=== PATIENT | female | born 1965 ===

== ENCOUNTER 2017-01-11 09:49 | Emergency (ER) | payer BC ==
[2017-01-11 09:53] VITALS: TEMP 98
[2017-01-11 09:54] VITALS: BMI 38.1
[2017-01-11 10:21] VITALS: RESP 18
[2017-01-11] MEDS ORDERED: Nystatin Ointment TOP STA (11:04)
--- NOTE | 2017-01-11 11:08 | ED PDOC ---
HPI: Skin/Bite Injury Time Seen by Provider: 01/11/17 10:47 Chief Complaint (Nursing): Abnormal Skin Integrity Chief Complaint (Provider): Rash History Per: Patient History/Exam Limitations: no limitations Onset/Duration Of Symptoms: Days (x 3 weeks) Current Symptoms Are (Timing): Still Present Additional Complaint(s): Nancy is a 52-year-old female with a past medical history of diabetes and hypertension, who presents to the ED complaining of a rash to the bilateral breast folds, ongoing for 3 weeks. Patient originally self-medicated by applying Desitin cream, bought over the counter at [employer]. Sunday she saw PMD who prescribed Econazole cream, which she has been using for 2 days. Rash is associated with burning, warmth, and pain, but no itchiness. Patient denies fever, chest pain, shortness of breath, new allergies, or rash to other areas. Cannot recall any new detergents or soaps, new bra, or anything that may have caused rash. PMD: Tae Fong MD Past Medical History Reviewed: Historical Data, Nursing Documentation, Vital Signs Vital Signs: Last Vital Signs Temp 98 F 01/11/17 09:52 Pulse 118 H 01/11/17 09:52 Resp 18 01/11/17 10:18 BP 150/92 H 01/11/17 09:52 Pulse Ox 98 01/11/17 11:30 - Medical History PMH: Asthma, Diabetes, HTN Denies: Chronic Kidney Disease - Surgical History Surgical History: Appendectomy, - Family History Family History: States: Unknown Family Hx - Social History Current smoker - smoking cessation education provided: No Alcohol: None Drugs: Denies - Home Medications Home Medications: Ambulatory Orders Medication Instructions Recorded Clopidogrel [Plavix] 75 mg PO DAILY #0 tab 03/18/16 GlipiZIDE [Glucotrol] 10 mg PO ACB #0 tab 03/18/16 Losartan [Cozaar] 25 mg PO DAILY #0 tab 03/18/16 MetFORMIN [glucOPHAGE] 500 mg PO QAM #15 tab 03/18/16 Amoxicillin/Clavulanate [Augmentin 1 tab PO BID 08/06/16 875 MG-125 MG Tab] Clindamycin [Cleocin] 300 mg PO QID 7 Days 08/06/16 Methylprednisolone [Medrol Dose 4 mg PO DAILY #21 mg 08/06/16 Pack (21 tabs)] oxyCODONE/Acetaminophen [Percocet 1 ea PO Q6 PRN #5 tab 08/06/16 5/325 mg Tab] Fluconazole 400 mg PO DAILY 7 Days 01/11/17 - Allergies Allergies/Adverse Reactions: Allergies Allergy/AdvReac Type Severity Reaction Status Date / Time tetracycline Allergy Mild RASH Verified 01/11/17 10:18 Review of Systems Constitutional: Negative for: Fever, Weakness ENT: Negative for: Nose Congestion, Throat Pain Cardiovascular: Negative for: Chest Pain, Edema, Light Headedness Respiratory: Negative for: Shortness of Breath Gastrointestinal: Negative for: Nausea, Vomiting Skin: Positive for: Rash (to bilateral breast folds, associated with burning and pain) Neurological: Negative for: Weakness Physical Exam - Reviewed Nursing Documentation Reviewed: Yes Vital Signs Reviewed: Yes - Physical Exam Appears: Positive for: Non-toxic, No Acute Distress Head Exam: Positive for: ATRAUMATIC, NORMAL INSPECTION, NORMOCEPHALIC Skin: Positive for: Warm, Dry, Rash (Erythematous to bilateral breast folds. No purulent discharge, vesicles, or induration; nontender; fluctuance; trace blanching.) Eye Exam: Positive for: EOMI, Normal appearance, PERRL ENT: Positive for: Normal ENT Inspection Neck: Positive for: Normal, Painless ROM, Supple Cardiovascular/Chest: Positive for: Regular Rate, Rhythm. Negative for: Murmur Respiratory: Positive for: Normal Breath Sounds. Negative for: Accessory Muscle Use, Respiratory Distress Gastrointestinal/Abdominal: Positive for: Normal Exam, Soft. Negative for: Tenderness Back: Positive for: Normal Inspection. Negative for: L CVA Tenderness, R CVA Tenderness, Vertebral Tenderness Extremity: Positive for: Normal ROM. Negative for: Tenderness, Pedal Edema, Deformity Neurologic/Psych: Positive for: Alert, Oriented - ECG O2 Sat by Pulse Oximetry: 98 (RA) Pulse Ox Interpretation: Normal - Progress ED Course And Treament: 1212: Stable. AAOx3. Will stop cream and give oral fungal meds. Pt. understands plan. Pain improved. Medical Decision Making Medical Decision Making: Time: 11:00 Initial Impression: Rash Initial Plan: --Motrin 600 mg PO --Applied Nystatin cream topically to affected region --Accucheck --Fluconazole 400 mg PO --Reevaluation Scribe Attestation: Documented by Sandra Cooley, acting as a scribe for Kaushik Terry MD Provider Scribe Attestation: All medical record entries made by the Scribe were at my direction and personally dictated by me. I have reviewed the chart and agree that the record accurately reflects my personal performance of the history, physical exam, medical decision making, and the department course for this patient. I have also personally directed, reviewed, and agree with the discharge instructions and disposition. Disposition - Clinical Impression Clinical Impression: Skin candidiasis - Patient ED Disposition Is Patient to be Admitted: No Counseled Patient/Family Regarding: Diagnosis, Need For Followup, Rx Given - Disposition Referrals: Tae Fong MD [Staff Provider] - 01/12/17 Disposition: Routine/Home Disposition Time: 12:15 Condition: STABLE Additional Instructions: Return if not better in 3 days. Stop your cream and start the oral medications. Prescriptions: Fluconazole 400 mg PO DAILY 7 Days Instructions: Skin Yeast Infection (ED) Forms: [employer] (Hungarian)
[2017-01-11 12:32] VITALS: BP 148/90; PULSE 100; O2SAT 99
== END 2017-01-11 12:28 | disposition home or self-care (01) ==
LOC: H.ER 09:49
DX: B37.89 Other sites of candidiasis (principal); E11.9 Type 2 diabetes mellitus without complications; I10 Essential (primary) hypertension; Z79.84 Long term (current) use of oral hypoglycemic drugs; J45.909 Unspecified asthma, uncomplicated

== ENCOUNTER 2017-06-16 10:32 | Emergency (ER) | payer BC ==
[2017-06-16 10:38] VITALS: BMI 37.0
[2017-06-16 10:39] VITALS: BP 149/80; PULSE 118; RESP 17; TEMP 98.8; O2SAT 96
--- NOTE | 2017-06-16 11:30 | ED PDOC ---
HPI: General Adult Time Seen by Provider: 06/16/17 10:47 Chief Complaint (Nursing): Cough, Cold, Congestion Chief Complaint (Provider): Non-produtive cough History/Exam Limitations: no limitations Onset/Duration Of Symptoms: Days (3 ays ago) Current Symptoms Are (Timing): Still Present Additional Complaint(s): 52 y/o female with a history of Diabetes Mellitus, presents to the ED complaining of nonproductive cough, onset of 3 days ago. Patient reports of no improvement with over the counter meds, mild shortness of breath, and chest pain when coughing, but denies fever. Past Medical History Reviewed: Historical Data, Nursing Documentation, Vital Signs Vital Signs: Last Vital Signs Temp 98.8 F 06/16/17 10:37 Pulse 118 H 06/16/17 10:37 Resp 17 06/16/17 10:37 BP 149/80 06/16/17 10:37 Pulse Ox 96 06/16/17 11:34 - Medical History PMH: Asthma, Bronchitis, Diabetes, Emphysema, HTN, Pneumonia Denies: Chronic Kidney Disease - Surgical History Surgical History: Appendectomy, - Family History Family History: States: Unknown Family Hx - Social History Ex-Smoker (has not smoked in the last 12 months): Yes Alcohol: Social Drugs: Denies - Home Medications Home Medications: Ambulatory Orders Medication Instructions Recorded Clopidogrel [Plavix] 75 mg PO DAILY #0 tab 03/18/16 GlipiZIDE [Glucotrol] 10 mg PO ACB #0 tab 03/18/16 Losartan [Cozaar] 25 mg PO DAILY #0 tab 03/18/16 MetFORMIN [glucOPHAGE] 500 mg PO QAM #15 tab 03/18/16 Amoxicillin/Clavulanate [Augmentin 1 tab PO BID 08/06/16 875 MG-125 MG Tab] Clindamycin [Cleocin] 300 mg PO QID 7 Days cap 08/06/16 Methylprednisolone [Medrol Dose 4 mg PO DAILY #21 mg 08/06/16 Pack (21 tabs)] oxyCODONE/Acetaminophen [Percocet 1 ea PO Q6 PRN #5 tab 08/06/16 5/325 mg Tab] Fluconazole 400 mg PO DAILY 7 Days tablet 01/11/17 Albuterol HFA [Ventolin HFA 90 2 puff IH Q4H #1 puff 06/16/17 mcg/actuation (8 g)] Azithromycin [Zithromax] 250 mg PO DAILY #6 tab 06/16/17 Methylprednisolone [Medrol Dose 4 mg PO DAILY #21 tab 06/16/17 Pack (21 tabs)] - Allergies Allergies/Adverse Reactions: Allergies Allergy/AdvReac Type Severity Reaction Status Date / Time tetracycline Allergy Mild RASH Verified 06/16/17 10:53 Review of Systems ROS Statement: Except As Marked, All Systems Reviewed And Found Negative Constitutional: Negative for: Fever Cardiovascular: Positive for: Chest Pain (when coughing) Respiratory: Positive for: Cough, Shortness of Breath (mild) Physical Exam - Reviewed Nursing Documentation Reviewed: Yes Vital Signs Reviewed: Yes - Physical Exam Appears: Positive for: Non-toxic, No Acute Distress Head Exam: Positive for: ATRAUMATIC, NORMAL INSPECTION, NORMOCEPHALIC Skin: Positive for: Normal Color, Warm Eye Exam: Positive for: Normal appearance, EOMI, PERRL ENT: Positive for: Normal ENT Inspection, Pharyngeal Erythema. Negative for: Tonsillar Exudate Neck: Positive for: Normal, Painless ROM, Supple Cardiovascular/Chest: Positive for: Regular Rate, Rhythm. Negative for: Murmur Respiratory: Positive for: Rhonchi (scattered rhonchi). Negative for: Wheezing , Respiratory Distress Extremity: Positive for: Normal ROM. Negative for: Pedal Edema, Deformity Neurologic/Psych: Positive for: Alert, Oriented. Negative for: Motor/Sensory Deficits - ECG O2 Sat by Pulse Oximetry: 96 (RA) Pulse Ox Interpretation: Normal Medical Decision Making Medical Decision Making: Time: --10:55 Impression: --Bronchitis Plan: --Chest X-ray --Influenza A B Reassess -- Scribe Attestation: Documented by Dell Tobin acting as a scribe for Ankur Desai MD. Disposition - Clinical Impression Clinical Impression: Bronchitis - Patient ED Disposition Is Patient to be Admitted: No Counseled Patient/Family Regarding: Studies Performed, Diagnosis, Need For Followup, Rx Given - Disposition Referrals: [facility] [Outside] Disposition: Routine/Home Disposition Time: 12:19 Condition: FAIR Prescriptions: Albuterol HFA [Ventolin HFA 90 mcg/actuation (8 g)] 2 puff IH Q4H #1 puff Azithromycin [Zithromax] 250 mg PO DAILY #6 tab Methylprednisolone [Medrol Dose Pack (21 tabs)] 4 mg PO DAILY #21 tab Instructions: Acute Bronchitis (ED) Forms: [employer] (Argentine)
[2017-06-16] MEDS ORDERED: Albuterol-Ipratrop 3 mg / 0.5 (3 ml) UD IH STA (12:23)
[2017-06-16] MEDS ORDERED: Albuterol-Ipratrop 3 mg / 0.5 (3 ml) UD ONE (12:28)
--- NOTE | 2017-06-16 12:49 | RAD ---
HISTORY: cough COMPARISON: Portable chest 03/17/2016. TECHNIQUE: Chest PA and lateral FINDINGS: LUNGS: No active pulmonary disease. PLEURA: No significant pleural effusion identified. No pneumothorax apparent. CARDIOVASCULAR: Normal. OSSEOUS STRUCTURES: No significant abnormalities. VISUALIZED UPPER ABDOMEN: Normal. OTHER FINDINGS: None. IMPRESSION: No interval acute cardiopulmonary disease appreciated.
== END 2017-06-16 11:28 | disposition home or self-care (01) ==
LOC: H.ER 10:32
DX: J40 Bronchitis, not specified as acute or chronic (principal); E11.9 Type 2 diabetes mellitus without complications; I10 Essential (primary) hypertension; Z79.84 Long term (current) use of oral hypoglycemic drugs; J43.9 Emphysema, unspecified; J45.909 Unspecified asthma, uncomplicated

== ENCOUNTER 2018-06-04 11:58 | Emergency (ER) | payer BC ==
[2018-06-04 12:13] VITALS: BMI 39.0
[2018-06-04 12:16] VITALS: RESP 18
--- NOTE | 2018-06-04 13:05 | ED PDOC ---
HPI: General Adult Time Seen by Provider: 06/04/18 12:39 Chief Complaint (Nursing): Medical Clearance Chief Complaint (Provider): Medical Clearance History Per: Patient History/Exam Limitations: no limitations Onset/Duration Of Symptoms: Days Current Symptoms Are (Timing): Still Present Additional Complaint(s): 53 year old female with PMHx of COPD was referred by PMD for medical clearance. Patient received a notification from the department of health of possible exposure to patient with TB, unknown as to when or under what circumstance. Otherwise, patient denies fever, shortness of breath, new cough, weight loss or night sweats. PMD: Non [facility] Provider Past Medical History Reviewed: Historical Data, Nursing Documentation, Vital Signs Vital Signs: Last Vital Signs Temp 98.4 F 06/04/18 12:15 Pulse 135 H 06/04/18 12:15 Resp 18 06/04/18 12:15 BP 146/101 H 06/04/18 12:15 Pulse Ox 97 06/04/18 12:15 - Medical History PMH: Asthma, Bronchitis, COPD, Diabetes, Emphysema, HTN, Pneumonia Denies: Chronic Kidney Disease - Surgical History Surgical History: Appendectomy, - Family History Family History: States: Unknown Family Hx - Home Medications Home Medications: Ambulatory Orders Medication Instructions Recorded Clopidogrel [Plavix] 75 mg PO DAILY #0 tab 03/18/16 GlipiZIDE [Glucotrol] 10 mg PO ACB #0 tab 03/18/16 Losartan [Cozaar] 25 mg PO DAILY #0 tab 03/18/16 MetFORMIN [glucOPHAGE] 500 mg PO QAM #15 tab 03/18/16 Amoxicillin/Clavulanate [Augmentin 1 tab PO BID 08/06/16 875 MG-125 MG Tab] Clindamycin [Cleocin] 300 mg PO QID 7 Days cap 08/06/16 Methylprednisolone [Medrol Dose 4 mg PO DAILY #21 mg 08/06/16 Pack (21 tabs)] oxyCODONE/Acetaminophen [Percocet 1 ea PO Q6 PRN #5 tab 08/06/16 5/325 mg Tab] Fluconazole 400 mg PO DAILY 7 Days tablet 01/11/17 Albuterol HFA [Ventolin HFA 90 2 puff IH Q4H #1 puff 06/16/17 mcg/actuation (8 g)] Azithromycin [Zithromax] 250 mg PO DAILY #6 tab 06/16/17 Methylprednisolone [Medrol Dose 4 mg PO DAILY #21 tab 06/16/17 Pack (21 tabs)] - Allergies Allergies/Adverse Reactions: Allergies Allergy/AdvReac Type Severity Reaction Status Date / Time tetracycline Allergy Mild RASH Verified 06/04/18 12:13 Review of Systems ROS Statement: Except As Marked, All Systems Reviewed And Found Negative Constitutional: Negative for: Fever, Sweats, Weight loss Respiratory: Negative for: Cough, Shortness of Breath Physical Exam - Reviewed Nursing Documentation Reviewed: Yes Vital Signs Reviewed: Yes - Physical Exam Appears: Positive for: Well, Non-toxic, No Acute Distress Head Exam: Positive for: ATRAUMATIC, NORMAL INSPECTION, NORMOCEPHALIC Skin: Positive for: Normal Color, Warm, Dry. Negative for: Rash Eye Exam: Positive for: EOMI, Normal appearance, PERRL ENT: Positive for: Normal ENT Inspection Neck: Positive for: Normal, Painless ROM, Supple. Negative for: Decreased ROM Cardiovascular/Chest: Positive for: Regular Rate, Rhythm. Negative for: Murmur Respiratory: Positive for: Normal Breath Sounds. Negative for: Decreased Breath Sounds, Wheezing, Respiratory Distress Gastrointestinal/Abdominal: Positive for: Normal Exam, Soft. Negative for: Tenderness Extremity: Positive for: Normal ROM. Negative for: Tenderness, Pedal Edema, Deformity Neurologic/Psych: Positive for: Alert, Oriented (x3). Negative for: Motor/Sensory Deficits - ECG O2 Sat by Pulse Oximetry: 97 (RA) Pulse Ox Interpretation: Normal Medical Decision Making Medical Decision Making: Time: 1255 Initial impression: Will determine from department of health for prophylaxis. In ED, will obtain blood work and CXR in anticipation for prophylaxis Initial plan: CMP CBC w/ Differential Chest Portable (CXR) Reevaluation Time: 1433 Quantiferon(R )-TB Gold Plus Discussed case with [facility] health nurse, Demetri. Currently, baseline, CXR and Quantiferon to be done in ED. Patient advised to follow-up on Sunday at department health. There is no need for prophylaxis at present time. Scribe Attestation: Documented by Alis Lowry, acting as a scribe for Ankur Desai MD. Provider Scribe Attestation: All medical record entries made by the Scribe were at my direction and personally dictated by me. I have reviewed the chart and agree that the record accurately reflects my personal performance of the history, physical exam, medical decision making, and the department course for this patient. I have also personally directed, reviewed, and agree with the discharge instructions and disposition. Disposition - Clinical Impression Clinical Impression: COPD (chronic obstructive pulmonary disease) - Patient ED Disposition Is Patient to be Admitted: No Counseled Patient/Family Regarding: Studies Performed, Diagnosis, Need For Followup - Disposition Disposition: Routine/Home Disposition Time: 15:03 Condition: FAIR Additional Instructions: Follow up Department of [facility] [place] 06/07/2018 Instructions: Chronic Obstructive Pulmonary Disease (COPD), Including Emphysema, General (DC) Forms: [employer] (Icelandic)
[2018-06-04 14:51] VITALS: BP 111/74; PULSE 84; TEMP 98.5
[2018-06-04 14:52] VITALS: O2SAT 97
--- NOTE | 2018-06-04 14:55 | RAD ---
Date of service: 06/04/2018 HISTORY: cough COMPARISON: Comparison chest 06/16/2017. FINDINGS: LUNGS: No active pulmonary disease. PLEURA: No significant pleural effusion identified, no pneumothorax apparent. CARDIOVASCULAR: No definitive aortic atherosclerotic calcification present. Normal cardiac size. No pulmonary vascular congestion. OSSEOUS STRUCTURES: No significant abnormalities. VISUALIZED UPPER ABDOMEN: Normal. OTHER FINDINGS: None. IMPRESSION: No active disease.
[2018-06-04 15:11] LABS: BASO # 0.1 K/uL (0.0-0.2); BASO % 0.6 % (0.0-2.0); EOS # 0.1 K/uL (0.0-0.7); EOS % 0.6 % (0.0-4.0); HEMOGLOBIN 14.5 g/dL (12.0-16.0); LYMPH % 28.1 % (20.0-40.0); MEAN CELL VOLUME 87.7 fl (81.0-99.0); MEAN CORPUSCULAR HEMOGLOBIN 28.7 pg (27.0-31.0); MEAN CORPUSCULAR HGB CONC 32.8 g/dL (33.0-37.0); MEAN PLATELET VOLUME 9.6 fl (7.2-11.7); MONO # 0.7 K/uL (0.0-0.8); MONO % 6.6 % (0.0-10.0); NEUT # 6.8 K/uL (1.8-7.0); NEUT % 64.1 % (50.0-75.0); NRBC % 0.1 % (0.0-0.0); RBC 5.05 Mil/uL (3.80-5.20); RED CELL DISTRIBUTION WIDTH 13.5 % (11.5-14.5); WHITE BLOOD COUNT 10.6 K/uL (4.8-10.8)
[2018-06-04 15:28] LABS: ALB/GLOB RATIO 1.2 (1.0-2.1); ALBUMIN 4.2 g/dL (3.5-5.0); ALT/SGPT 71 U/L (9-52); AST/SGOT 56 U/L (14-36); BLOOD UREA NITROGEN 15 mg/dl (7-17); CALCIUM 9.9 mg/dL (8.4-10.2); GFR NON-AFRICAN AMERICAN > 60
== END 2018-06-04 15:40 | disposition home or self-care (01) ==
LOC: H.ER 11:58
DX: J44.9 Chronic obstructive pulmonary disease, unspecified (principal); E11.9 Type 2 diabetes mellitus without complications; I10 Essential (primary) hypertension; Z79.84 Long term (current) use of oral hypoglycemic drugs